=== PATIENT | male | born 1970 | race Caucasian/White ===

== ENCOUNTER 2018-01-08 16:10 | Inpatient (IN) | payer OTHER ==
[~2018-01-08] VITALS: Ht 175.3 cm; Wt 78.5 kg
--- OUTSIDE RECORDS SUMMARY | 2018-01-08 16:22 | XMS REPORT | Summary of Care ---
Author Author TORO DOWNEY M.D. Organization Unknown Address [facility] Phone Unavailable Care Team Providers Care Recovery Agent Name Role Phone TORO DOWNEY M.D. 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 Tinnitus (388.30, H93.19) Status: Active Medications Name Dates Details No Reported Medications Active Allergies and Adverse Reactions Name Dates Details No Known Allergies (Allergy) Status: Active Procedures Procedure Dates Details Procedures not documented Immunization Name Dates Details Immunizations not documented Family History Name Dates Details No pertinent family history Comments: Other Status: Active Social History Name Dates Details Unknown if ever smoked Vital Signs Date Test Result Details [id number] BP Systolic 124 mm[Hg] Status: BP Diastolic 76 mm[Hg] Status: Height 72 in Status: Weight 170.25 lb Status: Body Mass Index Calculated 23.09 kg/m2 Status: Body Surface Area Calculated 1.99 m2 Status: Heart Rate 71 /min Status: Results Date Description Value Details Results not documented Plan of Care Name Dates Details Planned Observations Planned Goals not documented Interventions Provided Plan* 1. He will decide on hearing aids. Fu as needed. Instructions Name Dates Details Instructions not documented Encounters Appointment; TORO DOWNEY M.D. Encounter Diagnosis: Problem not documented On: 26-Jun-2017 13:00 Appointment; GURJIT CRUZ Encounter Diagnosis: Problem not documented On: 26-Jun-2017 13:00 Appointment; TORO DOWNEY M.D. Encounter Diagnosis: Problem not documented On: 17-Aug-2017 10:30
[2018-01-08] MEDS: SODIUM CHLORIDE 0.9% 1000ML 1,000 ML IV SCH (16:45)
[2018-01-08 17:10] VITALS: BP 139/89
[2018-01-08] MEDS ORDERED: MULTI-VITAMIN1 EACH (17:47)
[2018-01-08 17:58] LABS: BASOPHILS % 0.6 % (0.0-1.0); EOSINOPHILS # (AUTO) 0.2 (0.0-0.4); EOSINOPHILS % 2.8 % (0.0-6.0); HEMATOCRIT 46.1 % (38.2-49.6); LYMPHOCYTES # (AUTO) 2.5 (1.0-3.2); MEAN CORPUSCULAR HEMOGLOBIN 32.9 pg (28-32); MEAN CORPUSCULAR HGB CONC 36.9 g/dL (31-35); MEAN CORPUSCULAR VOLUME 89.2 fL (81-99); MONOCYTES # (AUTO) 0.8 (0.2-0.8); MONOCYTES % 10.6 % (4.4-11.3); NEUTROPHILS # (AUTO) 3.8 (2.1-6.9); NEUTROPHILS % 51.7 % (38.7-80.0); PLATELET COUNT 208 x10e3/uL (140-360); RED BLOOD COUNT 5.17 x10e6/uL (4.3-5.7); RED CELL DISTRIBUTION WIDTH 11.7 % (11.7-14.4)
[2018-01-08] MEDS ORDERED: GADOBENATE DIMEGLUMINE 1 ML IV ONE (18:06)
[2018-01-08 18:28] LABS: ALANINE AMINOTRANSFERASE 26 IU/L (0-55); ALBUMIN/GLOBULIN RATIO 1.2 (0.8-2.0); ALKALINE PHOSPHATASE 74 IU/L (40-150); ANION GAP 11.9 mmol/L (8-16); BILIRUBIN,DIRECT 0.2 mg/dL (0.0-0.5); BLOOD UREA NITROGEN 12 mg/dL (7-26); BUN/CREATININE RATIO 13 (6-25); CALCIUM 9.4 mg/dL (8.4-10.2); CARBON DIOXIDE 29 mmol/L (22-29); CHLORIDE 104 mmol/L (98-107); CREATININE, SERUM 0.89 mg/dL (0.72-1.25); EST GLOMERULAR FILTRATION RATE > 60 ML/MIN (60-); GLUCOSE 90 mg/dL (74-118); POTASSIUM 3.9 mmol/L (3.5-5.1); SODIUM 141 mmol/L (136-145)
[2018-01-08 18:43] LABS: ERYTHROCYTE SEDIMENTATION RATE 4 mm/hr (0-13)
--- NOTE | 2018-01-08 19:43 | Diagnostic Imaging Report ---
EXAMINATION: HAND RIGHT 2 VIEWS 01/08/2018 4:34 PM COMPARISON: None INDICATION: Infection DISCUSSION: 2 views of the right hand (PA and lateral) No fracture or dislocation. Scattered mild degenerative changes at the DIP joints. Soft tissues are unremarkable IMPRESSION: No acute radiographic abnormality of the right hand Lele Price MD Signed by: Dr. Lele Price M.D. on 01/08/2018 7:39 PM
[2018-01-08 20:00] VITALS: BP 111/75
--- NOTE | 2018-01-08 21:44 | History and Physical ---
HISTORY OF PRESENT ILLNESS: This patient is a very pleasant 47-year-old gentleman who has no past medical history. A couple of weeks ago he stuck his index finger with a thorn while he was working in the backyard. He went to see an urgent care center and he was given a prescription of Bactrim first and then he took it for a week and then he took Ceftin. The patient was telling me that the finger was red and swollen and was getting progressively worse while he was on antibiotic. The antibiotic did help some, but eventually now the pain is mainly in the joint of the index finger, the 1st joint, and he said that he cannot bend his finger. He denies any fever or chills, but he does have significant pain. PAST MEDICAL HISTORY: He denies. PAST SURGICAL HISTORY: He denies. ALLERGIES: NKA. SOCIAL HISTORY: He smokes 1 pack a day. REVIEW OF SYSTEMS: HEENT: There is no headache, visual changes or hearing changes. GI: There is no nausea. No vomiting. No diarrhea. CARDIAC: There is no arrhythmia. NEURO: No seizure activity. SKIN: There is no rash. All other systems are within normal limits. LABORATORY DATA: Still pending. PHYSICAL EXAMINATION: Is currently alert, oriented and does not seem to be in acute distress. VITALS: Stable. Currently afebrile. HEENT: Normocephalic, not icteric. NECK: Supple. CHEST: Clear bilaterally. HEART: S1 and S2, no murmur. ABDOMEN: Soft. Bowel sounds present. No tenderness. No hepatosplenomegaly. EXTREMITIES: There is no edema. On the right index, there is erythema. There is edema in the joint. IMPRESSION: Infection of the proximal intrapharyngeal joint of the index on the right. I am concerned that being stuck with cy thorn, that this is very concerning for sporotrichosis. However, I am concerned about infection of the finger itself and the joint itself. I think the patient will need a stat MRI with or without contrast. Plastic evaluation for surgery. Obtain cultures and sensitivity. I think once we obtain all data, we will start him on IV antibiotic. I am concerned that he was on oral antibiotic and that seems to be helping him, but sporotrichosis is a concern. Will put him on IV antibiotic. Discussed with Dr. Valles. He is going to see him in the morning. Will get an MRI and surgery as soon as we have the MRI. Discussed with the patient. Job#: [id number] GH
[2018-01-08 21:50] VITALS: BP 111/75
[2018-01-09] VITALS (9 sets, daily range): BP systolic 100–138; BP diastolic 60–76
[2018-01-09] MEDS: SODIUM CHLORIDE 0.9% 1000ML 1,000 ML IV SCH ×2 (05:15→17:45)
--- NOTE | 2018-01-09 08:22 | Diagnostic Imaging Report ---
TECHNIQUE: Magnetic resonance imaging of the RIGHT HAND was performed without and with injected contrast. 15 mL of MultiHance HISTORY: Pain, evaluate for infection of the index finger. The one stomach into finger. COMPARISON: None. FINDINGS: Soft tissue edema within the index finger predominantly over the dorsal aspect of the index finger. Mild enhancement. No defined abscess. Joints spaces intact. No effusion. Bone marrow signal normal. No edema, fracture, or osteomyelitis. Flexor extensor tendons intact. Annular pulleys intact. IMPRESSION: Soft tissue edema/cellulitis of the index finger. No abscess or osteomyelitis. Signed by: Dr. Domo Cross M.D. on 01/09/2018 8:18 AM
--- NOTE | 2018-01-09 10:31 | Consultation ---
DATE OF CONSULTATION: January 09, 2018 SURGERY CONSULTATION CHIEF COMPLAINT: Cy thorn puncture wound, right index finger. HISTORY OF PRESENT ILLNESS: The patient is a 47-year-old right hand dominant male who states that around the beginning of November he was gardening. He states that while pruning a cy miller he sustained a puncture wound from a cy thorn on his right index finger PIP joint. He states that the thorn was pulled out, and he does not believe there was any retained fragments. He noticed the immediate onset of pain and swelling at the puncture site, but this seemed to resolve within 48-72 hours. Approximately a week later, he noticed some pain and stiffness in the joint. There was a small eschar over the area of the puncture wound. He pulled the eschar off. He soaked the finger in Epsom salt and then used topical antibiotic ointment and a Band-Aid on it. Several days later, the inflammatory process continued and the finger became painful. He went to [facility] and was seen by a nurse practitioner, who prescribed him 2 different antibiotics. She stated that if it did not get better that he should come back and a 3rd antibiotic would be prescribed. The process seemed to continue to evolve. The patient ended up in his primary care doctor, and was referred to infectious disease. The infectious disease doctor felt that there is a possibility of sporotrichosis, and that the joint may possibly be infected. He was admitted last night and urgent consultation for hand surgery is now requested. PAST MEDICAL AND PAST SURGICAL HISTORY: Noncontributory. PHYSICAL EXAMINATION VITALS: The patient is afebrile. The vital signs are stable. EXTREMITIES: Shows fusiform swelling of the right index finger centered primarily around the PIP joint. The joint extends fully. However, it only flexes to approximately 75 degrees. There is no discrete erythema or cellulitis noted around the soft tissues of the PIP joint. There does not appear to be any lymphadenopathy or streaking of the forearm or the arm. LABS: The white blood cell count is within normal limits. The radiographs shows no radio-opaque foreign bodies in or around the area of the PIP joint. An MRI was obtained late last night and is still pending. IMPRESSION: Septic arthritis, right index finger proximal interphalangeal joint secondary to cy thorn. PLAN: I have explained to the patient that the PIP joint is rather recalcitrant to treatment, especially if a puncture wound gets within the joint capsule. Because of the puncture wound with a cy thorn, sporotrichosis is a concern. The infectious disease physician would like to have AFB and fungal cultures performed prior to starting treatment for the sporotrichosis because the treatment does have some hepatotoxicity. Positive ID would like to be obtained prior to starting this empirical treatment. The risks, benefits and alternatives to treatment were discussed with the patient. The patient is going to go to the OR today for arthrotomy and cultures. Thank you for allowing me to participate in the care of your patient. Job#: [id number] WILD
[2018-01-09] MEDS ORDERED: LIDOCAINE 1% W/EPINEPHRINE 20 ML VIAL ONE (12:05)
[2018-01-09] MEDS ORDERED: BUPIVACAINE HCL 0.5% INJ 30 ML VIAL INJ ONE (12:05)
[2018-01-09] MEDS ORDERED: MUPIROCIN 2% OINT 22 GM TUBE ONE (12:07)
[2018-01-09] MEDS ORDERED: BACITRACIN 50,000 UNIT VIAL ONE (12:07)
[2018-01-09] MEDS ORDERED: FENTANYL CITRATE/PF 100MCG/2 ML INJ ONE ×4 (14:28→17:56)
--- NOTE | 2018-01-09 14:30 | Operative Report ---
DATE OF PROCEDURE: January 09, 2018 PREOPERATIVE DIAGNOSIS: Rule out septic arthritis, right index finger, proximal interphalangeal joint. POSTOPERATIVE DIAGNOSES 1. Septic arthritis, right index finger, proximal interphalangeal joint. 2. Retained foreign body. PROCEDURES 1. Arthrotomy and removal of foreign body, right index finger, proximal interphalangeal joint. 2. Synovectomy of right index finger, proximal interphalangeal joint. ANESTHESIA: General. HISTORY: The patient is a 47-year-old right hand dominant male who approximately a month ago sustained a puncture wound from a cy thorn on the dorsal aspect of his right index finger, PIP joint. He developed pain and swelling in the joint. He was treated with several courses of oral antibiotics, but the condition did not resolved. He now presents for definitive exploration of the right index finger, PIP joint for possible foreign body and infection. Risks, benefits and alternatives of treatment were discussed with the patient. He is prepared to undergo the procedures outlined. DETAILS OF PROCEDURE: Patient was marked preoperatively in the holding area. He was brought to the operating theater, and after the induction of adequate general anesthesia, he was prepped and draped in a supine position. A time out was performed. The right upper extremity was elevated for 3-4 minutes, and then a tourniquet inflated to a pressure of 250 mmHg. A curvilinear incision was marked out about the PIP joint on the ulnar side of the index finger. The incision was made through the skin and subcutaneous tissues. Venous tributaries were controlled with the bipolar cautery. The skin flap was elevated off the extensor tendon mechanism. There is a modest amount of fibrinous exudate located directly over the dorsal aspect of the PIP joint. When this is opened, purulent exudate is encountered. There is a palpable foreign body, which is consistent with a thorn. This was removed and then sent for permanent pathologic examination. The purulence is cultured for aerobic and anaerobic studies. The area was then incised. It is noted to communicate directly through the dorsal aspect of the extensor tendon mechanism. The extensor tendon mechanism was debrided sagittally in the midline over the PIP joint and reflected off of the PIP joint. There is purulence within the joint and there is evidence of septic synovitis. The synovium is radically excised and sent for both AFB and fungal studies. With the joint held open, copious irrigation with several 100 mL of antibiotic containing solution was performed until the effluent was clear. Further visualization of the joint reveals there to be no further inflamed or infected synovium. Quarter-inch packing was placed in the joint space. The tendon was then closed around the packing using 4-0 Vicryl in an interrupted fashion. At this point, the wound was irrigated again. The skin was closed with 5-0 nylon in an interrupted horizontal mattress fashion. A Marcaine field block was performed at the base of the right index finger. The tourniquet deflated and the finger pinked up nicely. A sterile bulking conforming bandage was applied. The patient tolerated the procedure well. The patient was admitted to the recovery room and then returned to his hospital bed for further care and treatment. Job#: [id number] WILD
[2018-01-09] MEDS: VANCOMYCIN 1GM/NS 250 ML 250 ML IV SCH (15:28)
[2018-01-09] MEDS: ITRACONAZOLE 100 MG CAP PO SCH ×2 (17:00→23:15)
[2018-01-09] MEDS ORDERED: ONDANSETRON HCL INJ 2 MG/ML VIAL ONE (17:41)
[2018-01-09] MEDS ORDERED: PROPOFOL IV EMULSION 10 MG/ML 20 ML VIAL ONE (17:41)
[2018-01-09] MEDS ORDERED: SEVOFLURANE INHAL SOLN 250 ML PEN BTL ONE (17:41)
[2018-01-09] MEDS ORDERED: DEXAMETHASONE SOD PHOS INJ 4 MG/ML VIAL ONE (17:41)
[2018-01-09] MEDS ORDERED: LIDOCAINE HCL 2% LOCAL INJ 5 ML SDV VIAL INJ ONE (17:41)
[2018-01-09] MEDS ORDERED: MIDAZOLAM HCL 2 MG/2 ML VIAL ONE (17:54)
--- NOTE | 2018-01-09 17:59 | Diagnostic Imaging Report ---
PROCEDURE: A single AP view of the chest. COMPARISON: None. INDICATIONS: PICC LINE PLACEMENT TODAY FINDINGS: Lines/tubes: Right upper extremity PICC tip overlies the mid SVC. Lungs: The lungs are well inflated and clear. There is no evidence of pneumonia or pulmonary edema. Pleura: There is no pleural effusion or pneumothorax. Right costophrenic sulcus extends outside the field of view. Heart and mediastinum: The heart and the mediastinum are unremarkable. Bones: No acute bony abnormality. IMPRESSION: Right upper extremity PICC tip overlies the mid SVC. No acute cardiopulmonary disease. Dictated by: Porfirio Szymanski M.D. on 01/09/2018 at 18:00 Electronically approved by: Porfirio Szymanski M.D. on 01/09/2018 at 18:00
[2018-01-10] VITALS (7 sets, daily range): BP systolic 84–127; BP diastolic 52–77
[2018-01-10] MEDS ORDERED: HYDROMORPHONE 1MG/1ML INJ IV STA (02:46)
[2018-01-10] MEDS: VANCOMYCIN 1GM/NS 250 ML 250 ML IV SCH ×2 (02:51→14:22)
[2018-01-10] MEDS: SODIUM CHLORIDE 0.9% 1000ML 1,000 ML IV SCH ×2 (04:50→17:26)
[2018-01-10] MEDS: HYDROCODONE/APAP 7.5MG-325MG 1 EA TAB PO PRN ×3 (06:38→18:37)
[2018-01-10] MEDS: ITRACONAZOLE 100 MG CAP PO SCH ×2 (08:40→17:26)
[2018-01-10] MEDS ORDERED: MUPIROCIN 2% OINT 22 GM TUBE TOP SCH (09:00)
[2018-01-10] MEDS ORDERED: ITRACONAZOLE100 MG (18:13)
--- NOTE | 2018-01-11 16:15 | Discharge Summary ---
ADMISSION DIAGNOSIS: Infected finger, foreign body in the finger. DISCHARGE DIAGNOSIS: Infected finger, foreign body in the finger. This patient, who is a very pleasant 47-year-old, stuck himself with a cy thorn. The patient came to see me in my office as an outpatient. The patient, a few weeks ago, had stuck his index finger with a thorn. He took it out but the finger remained swollen and red and when I saw him I was concern about infection in the joint. The patient was sent emergency room to be admitted on IV antibiotic, also Surgery was consulted. Patient was admitted, he was seen by Dr. Valles. He was taken to the OR and there was a part of the thorn that remained in the joint. He had wash out. Patient is discharged home with IV vancomycin and oral itraconazole. To finish 3 months of itraconazole 200 mg p.o. daily and to finish 3 weeks of IV vancomycin while I get the culture and sensitivity. Patient did well. Will see as an outpatient. LEXX DOVE MD Job#: [id number] COLIN
[2018-01-13] MEDS ORDERED: ITRACONAZOLE 100 MG CAP PO SCH (09:00)
== END 2018-01-10 19:59 | disposition home health service (06) | DRG 906 ==
LOC: MED/SURG2 16:10
PROVIDERS: ADMIT Internal Medicine Infectious Disease; ATTEND Internal Medicine Infectious Disease
PROC: 02HV33Z Insertion of Infusion Device into Superior Vena Cava, Percutaneous Approach (ICD-10-PCS; 2018-01-09)
PROC: B5181ZA Fluoroscopy of Superior Vena Cava using Low Osmolar Contrast, Guidance (ICD-10-PCS; 2018-01-09)
PROC: 0R9W0ZZ Drainage of Right Finger Phalangeal Joint, Open Approach (ICD-10-PCS; principal; 2018-01-09 12:00)
DX: S61.240A Puncture wound with foreign body of right index finger without damage to nail, initial encounter (principal); M00.9 Pyogenic arthritis, unspecified; L03.011 Cellulitis of right finger; W45.8XXA Other foreign body or object entering through skin, initial encounter; Y93.H2 Activity, gardening and landscaping
CPT/HCPCS: 36415; 36569; 71045; 80053; 80076; 80202; 85025; 85651; 86140; 87071; 87075; 87102; 87116; 87205; 87206; 88300; J1100; J1170; J2001; J2250; J2405; J3370; J7030

== ENCOUNTER → 2020-06-30 | Day surgery (SDC) | payer BC, OTHER ==
[2020-06-25 14:15] LABS: BASOPHILS % 0.5 % (0.0-1.0); EOSINOPHILS % 0.7 % (0.0-6.0); HEMATOCRIT 48.6 % (38.2-49.6); HEMOGLOBIN 17.1 g/dL (14.0-18.0); LYMPHOCYTES # (AUTO) 1.2 (1.0-3.2); LYMPHOCYTES % 20.7 % (18.0-39.1); MEAN CORPUSCULAR HEMOGLOBIN 32.5 pg (28-32); MEAN CORPUSCULAR HGB CONC 35.2 g/dL (31-35); MEAN CORPUSCULAR VOLUME 92.4 fL (81-99); MONOCYTES # (AUTO) 0.6 (0.2-0.8); MONOCYTES % 9.8 % (4.4-11.3); NEUTROPHILS # (AUTO) 3.8 (2.1-6.9); NEUTROPHILS % 68.1 % (38.7-80.0); PLATELET COUNT 198 x10e3/uL (140-360); RED BLOOD COUNT 5.26 x10e6/uL (4.3-5.7); RED CELL DISTRIBUTION WIDTH 11.7 % (11.7-14.4)
[~2020-06-30] MED LIST: FENTANYL CITRATE/PF 100MCG/2 ML INJ ONE; GLUCAGON FOR INJ 1 MG VIAL ONE; HYOSCYAMINE 0.125 MG TAB ONE; ITRACONAZOLE100 MG; LIDOCAINE HCL 2% LOCAL INJ 5 ML SDV VIAL INJ ONE; METOCLOPRAMIDE HCL 10 MG/2ML VIAL ONE; MIDAZOLAM HCL 2 MG/2 ML VIAL ONE; MULTI-VITAMIN1 EACH; OCUVITE LUTEIN1 EACH PO; PANTOPRAZOLE 40 MG 10ML VIAL ONE; PROPOFOL IV EMULSION 10 MG/ML 20 ML VIAL ONE
[2020-06-30 16:35] VITALS: BP 112/79
== END | disposition home or self-care (01) ==
LOC: OR 12:20
PROVIDERS: ATTEND Internal Medicine Gastroenterology
DX: Z12.11 Encounter for screening for malignant neoplasm of colon (principal); D12.4 Benign neoplasm of descending colon; F17.210 Nicotine dependence, cigarettes, uncomplicated; K22.2 Esophageal obstruction; K44.9 Diaphragmatic hernia without obstruction or gangrene; K29.70 Gastritis, unspecified, without bleeding; K31.89 Other diseases of stomach and duodenum; K20.9 Esophagitis, unspecified; K22.8 Other specified diseases of esophagus
CPT/HCPCS: 36415; 43239; 43450; 85025; 93005; C9113; J1610; J2001; J2250; J2704; J2765; J3010; U0002; 45378; 45384; 45385